=== PATIENT | male | born 1990 | race African-American/Black ===

== ENCOUNTER 2016-11-02 02:47 | Emergency (ER) | payer OTHER ==
[~2016-11-02] VITALS: Ht 185.4 cm; Wt 100.0 kg
[2016-11-02 02:50] VITALS: TEMP 99.5
[2016-11-02] MEDS ORDERED: FIORICET 325 MG1 TA1 PO (05:12)
[2016-11-02 06:16] VITALS: BP 131/79; PULSE 79
== END 2016-11-02 06:17 | disposition home or self-care (01) ==
LOC: COL.ER 02:47
DX: R51 Headache (principal)
CPT/HCPCS: J1170; J1200; J1885; J2550; J7030

== ENCOUNTER 2019-01-04 02:16 | Emergency (ER) | payer SELFPAY ==
[~2019-01-04] VITALS: Ht 185.4 cm; Wt 100.0 kg
[~2019-01-04 02:16] MED LIST: FIORICET 325 MG1 TA1 PO
[2019-01-04 02:17] VITALS: TEMP 98.1
[2019-01-04 03:32] LABS: BASO # 0.1 (0.0-0.2); BASO % 0.8 % (0.0-2.0); EOS # 0.3 (0.0-0.7); EOS % 4.1 % (0-4.0); GRAN # 3.1 (1.4-6.5); GRAN % 51.4 % (42.2-75.2); HEMATOCRIT 41.8 % (42.0-52.0); HEMOGLOBIN 14.2 g/dl (13.5-18.0); LYMPH # 2.1 (1.2-3.4); LYMPH % 35.1 % (20.0-51.0); MEAN CELL VOLUME 83 fl (80.0-100.0); MEAN CORPUSCULAR HEMOGLOBIN 28 pg (27.0-31.0); MEAN CORPUSCULAR HGB CONC 34 g/dl (33.0-37.0); MEAN PLATELET VOLUME 10.9 fl (7.4-10.4); MONO # 0.5 (0.1-0.6); MONO % 8.4 % (1.7-9.3); PLATELET COUNT 172 K/mm3 (130-400); RED BLOOD COUNT 5.03 M/mm3 (4.20-5.60); REDCELL DISTRIBUTION WIDTH-CV 12.5 % (11.5-14.5)
[2019-01-04 03:44] LABS: ALANINE AMINOTRANSFERASE 16 U/L (21-72); ALBUMIN 3.9 gm/dL (3.5-5.0); ALKALINE PHOSPHATASE 126 U/L (50-136); ANION GAP 6 mmol/L (7-16); AST,SGOT 18 U/L (15-37); BILIRUBIN,TOTAL 0.6 mg/dL (0.0-1.0); BLOOD UREA NITROGEN 15 mg/dL (9-20); CALCIUM 9.1 mg/dL (8.4-10.2); CARBON DIOXIDE 26 mmol/L (22-30); CHLORIDE 105 mmol/L (98-107); CREATININE, serum 0.94 (0.66-1.25); GLUCOSE 95 mg/dL (74-106); POTASSIUM 3.9 mmol/L (3.4-5.0); SODIUM 136 mmol/L (137-145)
[2019-01-04 03:56] LABS: TROPONIN-I < 0.012 ng/mL (0.000-0.035)
[2019-01-04 05:25] VITALS: BP 115/80; PULSE 50
== END 2019-01-04 05:25 | disposition home or self-care (01) ==
LOC: COL.ER 02:16
PROVIDERS: Emergency Medicine
DX: R07.89 Other chest pain (principal); R20.2 Paresthesia of skin
CPT/HCPCS: J1885